=== PATIENT | female | born 1955 | race Caucasian/White ===

== ENCOUNTER 2018-10-06 15:21 | Inpatient (IN) | payer BC ==
[2018-10-06] MEDS: ASPIRIN 81 MG TAB PO (16:25)
[2018-10-06] MEDS: SODIUM CHLORIDE 0.9% 1L BAG IV* (16:25)
[2018-10-06] MEDS: CEFEPIME 2GM/50 ML (PMX) 50 ML IVPB (16:30)
[2018-10-06 16:44] LABS: ADD MAN DIFF? NO
[2018-10-06 16:52] LABS: WHITE BLOOD COUNT 10.5 10^3/ul (4.8-10.8)
[2018-10-06 16:52] LABS: BASOPHILS % 0.4 % (0.0-2.0); EOSINOPHILS # 0.3 10^3/ul (0.0-0.5); EOSINOPHILS % 2.8 % (0.0-7.0); HEMOGLOBIN 9.9 g/dl (12.0-16.0); LYMPHOCYTES # 3.1 10^3/ul (0.8-2.9); LYMPHOCYTES % 29.9 % (15.0-51.0); MEAN CORPUSCULAR HEMOGLOBIN 29.1 pg (29.0-33.0); MEAN CORPUSCULAR HGB CONC 31.9 g/dl (32.0-37.0); MEAN CORPUSCULAR VOLUME 91.2 fl (82.0-101.0); MEAN PLATELET VOLUME 11.1 fl (7.4-10.4); MONOCYTE # 0.9 10^3/ul (0.3-0.9); MONOCYTES % 8.4 % (0.0-11.0); NEUTROPHIL # 6.1 10^3/ul (1.6-7.5); PLATELET COUNT 338 10^3/UL (140-415); RED CELL DISTRIBUTION WIDTH 18.4 % (11.5-14.5)
[2018-10-06 17:11] LABS: ADD UMIC YES; INR 0.98; PROTIME 13.1 Sec (11.9-14.9); UR ASCORBIC ACID 40 mg/dL (NEGATIVE); UR BACTERIA FEW /HPF (NONE SEEN); UR BILIRUBIN (Dip) NEGATIVE (NEGATIVE); UR BLOOD (Dip) 1+ mg/dL (NEGATIVE); UR CLARITY CLOUDY (CLEAR); UR COLOR AMBER (YELLOW); UR GLUCOSE (Dip) NEGATIVE (NEGATIVE); UR KETONES (Dip) NEGATIVE (NEGATIVE); UR LEUKOCYTE ESTERASE (Dip) 3+ Leu/ul (NEGATIVE); UR NITRITE (Dip) NEGATIVE (NEGATIVE); UR RBC 34 /HPF (0-5); UR SPECIFIC GRAVITY (Dip) 1.019 (1.003-1.030); UR TOTAL PROTEIN (Dip) 1+ mg/dl (NEGATIVE); UR UROBILINOGEN (Dip) 1+ mg/dL (NEGATIVE); UR WBC > 182 /HPF (0-5)
[2018-10-06 17:12] LABS: PARTIAL THROMBOPLASTIN TIME 27.2 Sec (23.0-35.0)
[2018-10-06 17:13] LABS: ANION GAP 9 (5-13); BLOOD UREA NITROGEN 40 mg/dl (7-20); C-REACTIVE PROTEIN 3.2 mg/dl (0.0-0.9); CARBON DIOXIDE 37 mmol/L (21-31); CHLORIDE 96 mmol/L (97-110); CREATININE 0.61 mg/dl (0.44-1.00); Estimated GFR > 60 mL/min (>60); GLUCOSE 142 mg/dl (70-220); POTASSIUM 3.4 mmol/L (3.5-5.1); SODIUM 142 mmol/L (135-144)
[2018-10-06 17:22] LABS: TROPONIN-I 0.026 ng/ml (0.000-0.120)
[2018-10-06] MEDS: VANCOMYCIN 1 GM (PMX) 250 ML IVPB (17:42)
[2018-10-06] MEDS: ENOXAPARIN 80 MG/0.8 ML SYG SC (18:00)
[2018-10-06 18:09] LABS: ERYTHROCYTE SEDIMENTATION RATE 130 mm/Hr (0-30)
[2018-10-06] MEDS ORDERED: ONDANSETRON 4 MG INJ IV ×2 (18:30)
[2018-10-06] MEDS ORDERED: morphine 2 MG INJ IV (18:30)
[2018-10-06] MEDS ORDERED: DOCUSATE SODIUM 100 MG CAP PO (18:30)
[2018-10-06] MEDS ORDERED: hydrALAzine 20 MG INJ IV (18:30)
[2018-10-06] MEDS: MAGNESIUM HYDROXIDE 30ML CUP GTB (18:30)
[2018-10-06] MEDS ORDERED: ACETAMINOPHEN 650MG/20.3ML CUP GTB (18:30)
[2018-10-06] MEDS ORDERED: MAGNESIUM HYDROXIDE 30ML CUP PO (18:30)
[2018-10-06] MEDS ORDERED: NACL 0.9% 3 ML SYG IV (18:30)
[2018-10-06] MEDS ORDERED: LORAZEPAM 2 MG INJ IV (18:30)
[2018-10-06] MEDS ORDERED: ALBUTEROL/IPRATROPIUM (NEB) 3 ML AMP HHN (18:30)
[2018-10-06] MEDS ORDERED: NITROGLYCERIN (SL) 0.4 MG TAB SL (18:30)
[2018-10-06] MEDS ORDERED: ACETAMINOPHEN 325 MG TAB PO ×2 (18:30)
[2018-10-06 19:31] LABS: FREE T4 (FREE THYROXINE) 2.25 ng/dl (0.78-2.44)
[2018-10-06] MEDS: HYDROCODONE/APAP (5/325) TAB PO (19:35)
[2018-10-06 21:09] LABS: LACTIC ACID 1.8 mmol/L (0.5-2.0)
[2018-10-06 23:11] LABS: CREATINE KINASE 39 IU/L (23-200)
[2018-10-06 23:29] LABS: CK INDEX 12.3; CK-MB 4.79 ng/ml (0.0-2.4); TROPONIN-I 0.109 ng/ml (0.000-0.120)
[2018-10-06] MEDS: ATORVASTATIN 80 MG TAB GTB (23:30)
[2018-10-06] MEDS: ALLOPURINOL 100 MG TAB GTB (23:30)
[2018-10-06] MEDS: FUROSEMIDE 20 MG TAB GTB (23:30)
[2018-10-07] MEDS: PIPER-TAZO 3.375 GM IV (PMX) 100 ML IVPB ×4 (00:47→17:38)
[2018-10-07 05:39] LABS: ADD MAN DIFF? NO
[2018-10-07 05:48] LABS: WHITE BLOOD COUNT 7.8 10^3/ul (4.8-10.8)
[2018-10-07 05:48] LABS: BASOPHILS % 0.5 % (0.0-2.0); EOSINOPHILS # 0.4 10^3/ul (0.0-0.5); EOSINOPHILS % 4.6 % (0.0-7.0); HEMATOCRIT 26.5 % (37.0-47.0); HEMOGLOBIN 8.3 g/dl (12.0-16.0); LYMPHOCYTES # 2.4 10^3/ul (0.8-2.9); LYMPHOCYTES % 31.4 % (15.0-51.0); MEAN CORPUSCULAR HEMOGLOBIN 28.7 pg (29.0-33.0); MEAN CORPUSCULAR HGB CONC 31.3 g/dl (32.0-37.0); MEAN CORPUSCULAR VOLUME 91.7 fl (82.0-101.0); MEAN PLATELET VOLUME 10.4 fl (7.4-10.4); MONOCYTE # 0.6 10^3/ul (0.3-0.9); MONOCYTES % 8.2 % (0.0-11.0); NEUTROPHIL # 4.3 10^3/ul (1.6-7.5); PLATELET COUNT 268 10^3/UL (140-415); RED BLOOD COUNT 2.89 10^6/ul (4.20-5.40); RED CELL DISTRIBUTION WIDTH 17.9 % (11.5-14.5)
[2018-10-07 06:20] LABS: ANION GAP 5 (5-13); BLOOD UREA NITROGEN 26 mg/dl (7-20); CALCIUM 8.8 mg/dl (8.4-10.2); CARBON DIOXIDE 31 mmol/L (21-31); CHLORIDE 106 mmol/L (97-110); CREATININE 0.52 mg/dl (0.44-1.00); Estimated GFR > 60 mL/min (>60); GLUCOSE 107 mg/dl (70-220); POTASSIUM 3.4 mmol/L (3.5-5.1); SODIUM 142 mmol/L (135-144)
[2018-10-07 06:22] LABS: CREATINE KINASE 39 IU/L (23-200)
[2018-10-07 06:30] LABS: CK INDEX 12.4; CK-MB 4.83 ng/ml (0.0-2.4)
[2018-10-07 06:32] LABS: TROPONIN-I 0.282 ng/ml (0.000-0.120)
[2018-10-07 06:36] LABS: CHOLESTEROL 150 mg/dl (100-200)
[2018-10-07 06:36] LABS: CHOL/HDL RATIO 7.5 RATIO; HDL CHOLESTEROL 20 mg/dl (35-98); LDL CHOLESTEROL,CALCULATED 26 mg/dl; TRIGLYCERIDES 522 mg/dl (0-149)
[2018-10-07 09:20] LABS: HEMOGLOBIN A1C 6.5 % (0-5.9)
[2018-10-07] MEDS: LISINOPRIL 5 MG TAB GTB (09:36)
[2018-10-07] MEDS: FAMOTIDINE 20 MG TAB GTB (09:36)
[2018-10-07] MEDS: ALLOPURINOL 100 MG TAB GTB ×2 (09:36→21:32)
[2018-10-07] MEDS: FUROSEMIDE 20 MG TAB GTB ×2 (09:37→21:32)
[2018-10-07] MEDS ORDERED: ENOXAPARIN 60 MG/0.6 ML SYG SC (10:30)
[2018-10-07 11:49] LABS: TROPONIN-I 0.238 ng/ml (0.000-0.120)
[2018-10-07 12:19] LABS: DIGOXIN 0.9 ng/ml (1.0-2.0)
[2018-10-07] MEDS: DIGOXIN 0.125 MG TAB GTB (13:16)
[2018-10-07] MEDS: DAKINS 0.0125%(1/40) 473 ML SOLUTION TP ×2 (16:00→21:50)
[2018-10-07 16:59] LABS: TROPONIN-I 0.156 ng/ml (0.000-0.120)
[2018-10-07] MEDS: MAGNESIUM HYDROXIDE 30ML CUP GTB (17:35)
[2018-10-07] MEDS: ASCORBIC ACID 500 MG TAB GTB (17:35)
[2018-10-07] MEDS: ATORVASTATIN 80 MG TAB GTB (21:32)
[2018-10-08] MEDS: PIPER-TAZO 3.375 GM IV (PMX) 100 ML IVPB ×4 (00:50→18:15)
[2018-10-08 05:28] LABS: ADD MAN DIFF? NO
[2018-10-08 05:36] LABS: WHITE BLOOD COUNT 8.7 10^3/ul (4.8-10.8)
[2018-10-08 05:36] LABS: BASOPHILS % 0.3 % (0.0-2.0); EOSINOPHILS # 0.4 10^3/ul (0.0-0.5); EOSINOPHILS % 4.3 % (0.0-7.0); HEMATOCRIT 25.4 % (37.0-47.0); HEMOGLOBIN 8.2 g/dl (12.0-16.0); LYMPHOCYTES # 3.1 10^3/ul (0.8-2.9); LYMPHOCYTES % 35.7 % (15.0-51.0); MEAN CORPUSCULAR HEMOGLOBIN 29.2 pg (29.0-33.0); MEAN CORPUSCULAR HGB CONC 32.3 g/dl (32.0-37.0); MEAN CORPUSCULAR VOLUME 90.4 fl (82.0-101.0); MEAN PLATELET VOLUME 10.3 fl (7.4-10.4); MONOCYTE # 0.7 10^3/ul (0.3-0.9); MONOCYTES % 8.3 % (0.0-11.0); NEUTROPHIL # 4.4 10^3/ul (1.6-7.5); NEUTROPHILS % 51.1 % (39.0-77.0); PLATELET COUNT 283 10^3/UL (140-415); RED BLOOD COUNT 2.81 10^6/ul (4.20-5.40); RED CELL DISTRIBUTION WIDTH 17.5 % (11.5-14.5)
[2018-10-08 06:12] LABS: ANION GAP 11 (5-13); BLOOD UREA NITROGEN 24 mg/dl (7-20); CALCIUM 8.6 mg/dl (8.4-10.2); CARBON DIOXIDE 29 mmol/L (21-31); CHLORIDE 99 mmol/L (97-110); CREATININE 0.52 mg/dl (0.44-1.00); Estimated GFR > 60 mL/min (>60); GLUCOSE 184 mg/dl (70-220); POTASSIUM 3.5 mmol/L (3.5-5.1); SODIUM 139 mmol/L (135-144)
[2018-10-08] MEDS: LISINOPRIL 5 MG TAB GTB (09:07)
[2018-10-08] MEDS: ASPIRIN 81 MG TAB PO (09:07)
[2018-10-08] MEDS: FUROSEMIDE 20 MG TAB GTB ×2 (09:07→21:30)
[2018-10-08] MEDS: ASCORBIC ACID 500 MG TAB GTB (09:07)
[2018-10-08] MEDS: FAMOTIDINE 20 MG TAB GTB (09:07)
[2018-10-08] MEDS: ALLOPURINOL 100 MG TAB GTB ×2 (09:08→21:29)
[2018-10-08] MEDS: DAKINS 0.0125%(1/40) 473 ML SOLUTION TP ×2 (09:08→21:31)
[2018-10-08] MEDS ORDERED: ASCORBIC ACID 500 MG TAB PO (10:30)
[2018-10-08] MEDS: ZINC SULFATE 220 MG CAP GTB (12:09)
[2018-10-08] MEDS: MULTIVITAMINS THERAPEUTIC TAB PO (12:09)
[2018-10-08] MEDS: FOLIC ACID 1 MG TAB PO (12:10)
[2018-10-08] MEDS: DIGOXIN 0.125 MG TAB GTB (13:00)
[2018-10-08] MEDS: MAGNESIUM HYDROXIDE 30ML CUP GTB (18:15)
[2018-10-08] MEDS: ATORVASTATIN 80 MG TAB GTB (21:29)
[2018-10-08] MEDS: HEPARIN 5,000 UNIT/1 ML VIAL SC (21:50)
[2018-10-09] MEDS: PIPER-TAZO 3.375 GM IV (PMX) 100 ML IVPB ×5 (00:19→23:58)
[2018-10-09 05:49] LABS: ADD MAN DIFF? NO
[2018-10-09 05:56] LABS: BASOPHILS % 0.2 % (0.0-2.0); EOSINOPHILS # 0.2 10^3/ul (0.0-0.5); EOSINOPHILS % 2.8 % (0.0-7.0); HEMATOCRIT 26.8 % (37.0-47.0); LYMPHOCYTES # 2.9 10^3/ul (0.8-2.9); LYMPHOCYTES % 34.1 % (15.0-51.0); MEAN CORPUSCULAR HEMOGLOBIN 29.9 pg (29.0-33.0); MEAN CORPUSCULAR HGB CONC 33.6 g/dl (32.0-37.0); MEAN PLATELET VOLUME 10.5 fl (7.4-10.4); MONOCYTE # 0.7 10^3/ul (0.3-0.9); MONOCYTES % 7.9 % (0.0-11.0); NEUTROPHIL # 4.7 10^3/ul (1.6-7.5); NEUTROPHILS % 54.8 % (39.0-77.0); PLATELET COUNT 305 10^3/UL (140-415); RED BLOOD COUNT 3.01 10^6/ul (4.20-5.40)
[2018-10-09 05:56] LABS: WHITE BLOOD COUNT 8.5 10^3/ul (4.8-10.8)
[2018-10-09 06:21] LABS: ANION GAP 9 (5-13); BLOOD UREA NITROGEN 25 mg/dl (7-20); CALCIUM 9.2 mg/dl (8.4-10.2); CARBON DIOXIDE 32 mmol/L (21-31); CHLORIDE 99 mmol/L (97-110); CREATININE 0.54 mg/dl (0.44-1.00); Estimated GFR > 60 mL/min (>60); GLUCOSE 179 mg/dl (70-220); POTASSIUM 3.4 mmol/L (3.5-5.1); SODIUM 140 mmol/L (135-144)
[2018-10-09] MEDS: FOLIC ACID 1 MG TAB PO (08:45)
[2018-10-09] MEDS: FAMOTIDINE 20 MG TAB GTB (08:45)
[2018-10-09] MEDS: ASCORBIC ACID 500 MG TAB GTB (08:45)
[2018-10-09] MEDS: LISINOPRIL 5 MG TAB GTB (08:45)
[2018-10-09] MEDS: ASPIRIN 81 MG TAB PO (08:45)
[2018-10-09] MEDS: ALLOPURINOL 100 MG TAB GTB ×2 (08:45→20:36)
[2018-10-09] MEDS: MULTIVITAMINS THERAPEUTIC TAB PO (08:46)
[2018-10-09] MEDS: FUROSEMIDE 20 MG TAB GTB ×2 (08:46→20:36)
[2018-10-09] MEDS: HEPARIN 5,000 UNIT/1 ML VIAL SC ×2 (08:55→21:05)
[2018-10-09] MEDS: DAKINS 0.0125%(1/40) 473 ML SOLUTION TP ×2 (09:12→20:36)
[2018-10-09] MEDS: ZINC SULFATE 220 MG CAP GTB (09:12)
[2018-10-09] MEDS: DIGOXIN 0.125 MG TAB GTB (12:08)
[2018-10-09] MEDS: POTASSIUM CHLORIDE (SR) 20 MEQ TAB PO (13:12)
[2018-10-09] MEDS: POTASSIUM CHLORIDE 20 MEQ POWDER FOR ORAL SOLN GTB (13:21)
[2018-10-09] MEDS: MAGNESIUM HYDROXIDE 30ML CUP GTB (17:37)
[2018-10-09] MEDS: ATORVASTATIN 80 MG TAB GTB (20:36)
[2018-10-10] MEDS: PIPER-TAZO 3.375 GM IV (PMX) 100 ML IVPB ×4 (06:06→23:37)
[2018-10-10 06:27] LABS: ADD MAN DIFF? NO
[2018-10-10 06:38] LABS: WHITE BLOOD COUNT 9.2 10^3/ul (4.8-10.8)
[2018-10-10 06:38] LABS: BASOPHILS % 0.4 % (0.0-2.0); EOSINOPHILS # 0.3 10^3/ul (0.0-0.5); EOSINOPHILS % 3.5 % (0.0-7.0); HEMATOCRIT 28.8 % (37.0-47.0); HEMOGLOBIN 9.3 g/dl (12.0-16.0); LYMPHOCYTES # 2.7 10^3/ul (0.8-2.9); LYMPHOCYTES % 28.8 % (15.0-51.0); MEAN CORPUSCULAR HEMOGLOBIN 29.3 pg (29.0-33.0); MEAN CORPUSCULAR HGB CONC 32.3 g/dl (32.0-37.0); MEAN CORPUSCULAR VOLUME 90.9 fl (82.0-101.0); MEAN PLATELET VOLUME 10.5 fl (7.4-10.4); MONOCYTE # 0.8 10^3/ul (0.3-0.9); NEUTROPHIL # 5.3 10^3/ul (1.6-7.5); NEUTROPHILS % 57.8 % (39.0-77.0); PLATELET COUNT 333 10^3/UL (140-415); RED BLOOD COUNT 3.17 10^6/ul (4.20-5.40); RED CELL DISTRIBUTION WIDTH 18.2 % (11.5-14.5)
[2018-10-10 07:19] LABS: ANION GAP 9 (5-13); BLOOD UREA NITROGEN 28 mg/dl (7-20); CALCIUM 9.5 mg/dl (8.4-10.2); CARBON DIOXIDE 32 mmol/L (21-31); CHLORIDE 100 mmol/L (97-110); Estimated GFR > 60 mL/min (>60); GLUCOSE 166 mg/dl (70-220); POTASSIUM 3.8 mmol/L (3.5-5.1); SODIUM 141 mmol/L (135-144)
[2018-10-10] MEDS: FOLIC ACID 1 MG TAB PO (09:02)
[2018-10-10] MEDS: ASPIRIN 81 MG TAB PO (09:02)
[2018-10-10] MEDS: LISINOPRIL 5 MG TAB GTB (09:03)
[2018-10-10] MEDS: ZINC SULFATE 220 MG CAP GTB (09:03)
[2018-10-10] MEDS: MULTIVITAMINS THERAPEUTIC TAB PO (09:03)
[2018-10-10] MEDS: FUROSEMIDE 20 MG TAB GTB ×2 (09:03→19:44)
[2018-10-10] MEDS: FAMOTIDINE 20 MG TAB GTB (09:03)
[2018-10-10] MEDS: ALLOPURINOL 100 MG TAB GTB ×2 (09:03→19:44)
[2018-10-10] MEDS: ASCORBIC ACID 500 MG TAB GTB (09:03)
[2018-10-10] MEDS ORDERED: DAKINS 0.0125%(1/40) 473 ML SOLUTION TP (09:09)
[2018-10-10] MEDS: HEPARIN 5,000 UNIT/1 ML VIAL SC ×2 (09:11→19:58)
[2018-10-10] MEDS: SODIUM HYPOCHLORITE (1/40) 1 LITER BTL TOP ×2 (11:41→19:59)
[2018-10-10] MEDS: DIGOXIN 0.125 MG TAB GTB (12:26)
[2018-10-10] MEDS: MAGNESIUM HYDROXIDE 30ML CUP GTB (18:04)
[2018-10-10] MEDS: ATORVASTATIN 80 MG TAB GTB (19:44)
[2018-10-11 05:18] LABS: ADD MAN DIFF? NO
[2018-10-11] MEDS: PIPER-TAZO 3.375 GM IV (PMX) 100 ML IVPB (05:22)
[2018-10-11 05:26] LABS: BASOPHIL # 0.1 10^3/ul (0.0-0.1); BASOPHILS % 0.5 % (0.0-2.0); EOSINOPHILS # 0.4 10^3/ul (0.0-0.5); EOSINOPHILS % 3.4 % (0.0-7.0); HEMATOCRIT 29.4 % (37.0-47.0); HEMOGLOBIN 9.6 g/dl (12.0-16.0); LYMPHOCYTES % 28.2 % (15.0-51.0); MEAN CORPUSCULAR HEMOGLOBIN 29.8 pg (29.0-33.0); MEAN CORPUSCULAR HGB CONC 32.7 g/dl (32.0-37.0); MEAN CORPUSCULAR VOLUME 91.3 fl (82.0-101.0); MEAN PLATELET VOLUME 10.4 fl (7.4-10.4); MONOCYTE # 0.9 10^3/ul (0.3-0.9); MONOCYTES % 8.5 % (0.0-11.0); NEUTROPHIL # 6.3 10^3/ul (1.6-7.5); NEUTROPHILS % 58.9 % (39.0-77.0); PLATELET COUNT 339 10^3/UL (140-415); RED BLOOD COUNT 3.22 10^6/ul (4.20-5.40); RED CELL DISTRIBUTION WIDTH 18.1 % (11.5-14.5)
[2018-10-11 05:26] LABS: WHITE BLOOD COUNT 10.6 10^3/ul (4.8-10.8)
[2018-10-11 05:58] LABS: ANION GAP 12 (5-13); BLOOD UREA NITROGEN 26 mg/dl (7-20); CALCIUM 9.7 mg/dl (8.4-10.2); CARBON DIOXIDE 28 mmol/L (21-31); CHLORIDE 99 mmol/L (97-110); CREATININE 0.62 mg/dl (0.44-1.00); Estimated GFR > 60 mL/min (>60); GLUCOSE 185 mg/dl (70-220); POTASSIUM 3.7 mmol/L (3.5-5.1); SODIUM 139 mmol/L (135-144)
[2018-10-11] MEDS: ALLOPURINOL 100 MG TAB GTB (09:24)
[2018-10-11] MEDS: ZINC SULFATE 220 MG CAP GTB (09:25)
[2018-10-11] MEDS: FAMOTIDINE 20 MG TAB GTB (09:25)
[2018-10-11] MEDS: MULTIVITAMINS THERAPEUTIC TAB PO (09:25)
[2018-10-11] MEDS: FOLIC ACID 1 MG TAB PO (09:25)
[2018-10-11] MEDS: ASPIRIN 81 MG TAB PO (09:25)
[2018-10-11] MEDS: ASCORBIC ACID 500 MG TAB GTB (09:26)
[2018-10-11] MEDS: FUROSEMIDE 20 MG TAB GTB (09:26)
[2018-10-11] MEDS: LISINOPRIL 5 MG TAB GTB (09:27)
[2018-10-11] MEDS: HEPARIN 5,000 UNIT/1 ML VIAL SC (09:36)
[2018-10-11] MEDS: DIGOXIN 0.125 MG TAB GTB (12:50)
[2018-10-12] MEDS ORDERED: LEVOFLOXACIN 500 MG TAB PO (06:00)
== END 2018-10-11 21:00 | DRG 592 ==
LOC: E/R 15:21 → 6WM 18:05
DX: L89.154 Pressure ulcer of sacral region, stage 4 (principal); I21.A1 Myocardial infarction type 2; N39.0 Urinary tract infection, site not specified; I69.354 Hemiplegia and hemiparesis following cerebral infarction affecting left non-dominant side; M46.28 Osteomyelitis of vertebra, sacral and sacrococcygeal region; Z93.1 Gastrostomy status; E11.9 Type 2 diabetes mellitus without complications; I10 Essential (primary) hypertension; E78.00 Pure hypercholesterolemia, unspecified; I25.10 Atherosclerotic heart disease of native coronary artery without angina pectoris; I25.5 Ischemic cardiomyopathy; B96.1 Klebsiella pneumoniae [K. pneumoniae] as the cause of diseases classified elsewhere; B95.2 Enterococcus as the cause of diseases classified elsewhere; I25.2 Old myocardial infarction; Z79.4 Long term (current) use of insulin
CPT/HCPCS: 36415; 71045; 80048; 80061; 80162; 81001; 82550; 82553; 83036; 83605; 83735; 84100; 84439; 84443; 84484; 85025; 85610; 85651; 85730; 86140; 87040-91; 87070; 87086; 92610; 93005; 93306; 96372; 96374; 96375; 97110; 97163; 97530; 99285-25